=== PATIENT | female | born 1950 | race Caucasian/White ===

== ENCOUNTER → 2019-02-19 | Outpatient (CLI) | payer MEDICARE, BC ==
[2015-12-20 14:17] VITALS: BMI 30.6
[~2019-02-19] MED LIST: AMPI250C65 PO; AZIT-1 PO; GUAI120L3 PO; GUAI600T57 PO; HYDR-385 PO; PRED20TA6 PO
[2019-02-19 10:48] LABS: PLATELET COUNT, AUTOMATED 256 K/uL (150-450)
--- NOTE | 2019-02-19 11:09 | RADIOLOGY IMAGING REPORT ---
[place] [facility] [place] NAME: Ilana Barnes : 1950 MR: [id number] V: [id number] EXAM DATE: ORDERING PHYSICIAN: NUZHAT CRUZ TECHNOLOGIST: Location: [facility] Patient: Ilana Barnes : 1950 Visit/Account:[id number] Date of Sevice: 02/19/2019 EXAMINATION: Right hip radiographs 2 views HISTORY: Right leg pain. COMPARISON: None. FINDINGS: AP view of the pelvis and frog-leg lateral view of the right hip are obtained. Bones: No acute fracture or dislocation. Joint spaces: Mild sclerosis of the pubic symphysis. Mild joint space narrowing of the right hip. Hardware: None. Alignment: Normal. Soft tissues: Negative. IMPRESSION: 1. No acute fracture or dislocation of the right hip. 2. Mild joint space narrowing of the right hip could indicate osteoarthritis. 3. 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
--- NOTE | 2019-02-19 11:40 | RADIOLOGY IMAGING REPORT ---
FACILITY: [facility] PATIENT NAME: Ilana Barnes : 1950 MR: [id number] V: [id number] EXAM DATE: ORDERING PHYSICIAN: NUZHAT CRUZ TECHNOLOGIST: Location: [facility] Patient: Ilana Barnes : 1950 Visit/Account:[id number] Date of Sevice: 02/19/2019 EXAMINATION: Doppler ultrasound deep veins unilateral lower extremity HISTORY: Severe nocturnal right leg pain for 7 days. COMPARISON: None. FINDINGS: Grayscale compression, duplex and color Doppler interrogation of the right lower extremity deep veins from common femoral vein to proximal calf was performed. The greater saphenous vein in the ipsilater al proximal thigh was evaluated using similar technique. Right lower extremity: Common femoral vein: Negative. Femoral vein: Negative. Deep femoral vein: Negative. Popliteal vein: Negative. Visualized deep calf veins: Negative. Greater saphenous vein in the proximal thigh: Negative. Popliteal fossa: Negative. Waveforms: Normal respiratory phasicity. IMPRESSION: No DVT of the right lower extremity. Report Dictated By: Leticia Olivares MD at 02/19/2019 11:36 AM Report E-Signed By: Leticia Olivares MD at 02/19/2019 11:37 AM WSN:ANA
== END ==
LOC: LAB 10:24
PROVIDERS: ATTEND Emergency Medicine
DX: M79.604 Pain in right leg (principal)
CPT/HCPCS: 36415; 82040; 82247; 82310; 82374; 82435; 82565; 82947; 84075; 84132; 84155; 84295; 84450; 84460; 84520; 85025; 85651; 86140

== ENCOUNTER → 2019-03-13 | Outpatient (CLI) | payer MEDICARE, BC ==
[2015-12-20 14:17] VITALS: BMI 30.6
--- NOTE | 2019-03-14 16:00 | RADIOLOGY IMAGING REPORT ---
FACILITY: [facility] - [place] PATIENT NAME: CLAUDIA DUARTE : [id number] MR: [id number] V: [id number] EXAM DATE: [id number] ORDERING PHYSICIAN: NUZHAT CRUZ TECHNOLOGIST: Waleska Cordoba PROCEDURE: BILATERAL DIGITAL SCREENING MAMMOGRAM WITH CAD ASSISTED INTERPRETATION & 3D TOMOSYNTHESIS REASON FOR STUDY: Screening. FAMILY HISTORY OF BREAST CANCER: BREAST PROCEDURES/TREATMENTS: COMPARISON: Prior mammogram 06/09/2017. VIEWS OBTAINED: 2D & 3D full field CC & MLO. BREAST DENSITY: The breast tissue demonstrates scattered fibroglandular tissue elements. MAMMOGRAM FINDINGS: There is no suspicious mass, calcification, or architectural distortion. IMPRESSION: BIRADS 1: Negative. No mammographic evidence for malignancy. DIAGNOSTIC CATEGORY 1--NEGATIVE. RECOMMENDATIONS: ROUTINE MAMMOGRAM AND CLINICAL EVALUATION IN 1 YEAR. Dictated by: Lenin Santamaria M.D. on 03/14/2019 at 13:28 Transcribed by: DEBORA on 03/14/2019 at 14:54 Approved by: Lenni Santamaria M.D. on 03/14/2019 at 15:59 [facility]
== END ==
LOC: MAMO 00:38
PROVIDERS: ATTEND Emergency Medicine
DX: Z12.31 Encounter for screening mammogram for malignant neoplasm of breast (principal)
CPT/HCPCS: 77063; 77067

== ENCOUNTER → 2019-04-25 | Outpatient (CLI) | payer MEDICARE, BC ==
[2015-12-20 14:17] VITALS: BMI 30.6
== END ==
LOC: LAB 15:21
PROVIDERS: ATTEND Emergency Medicine
DX: M85.80 Other specified disorders of bone density and structure, unspecified site (principal); R73.09 Other abnormal glucose; Z91.89 Other specified personal risk factors, not elsewhere classified; R63.4 Abnormal weight loss
CPT/HCPCS: 36415; 82306; 82465; 83036; 83718; 84443; 84478

== ENCOUNTER 2019-05-07 10:30 | Outpatient (RCR) | payer MEDICARE, BC ==
[2015-12-20 14:17] VITALS: BMI 30.6
--- NOTE | 2019-02-22 07:59 | PT INITIAL EVALUATION ---
MEDICAL DIAGNOSIS: Right hip pain TREATMENT DIAGNOSIS: same, lumbar, hip, knee pain DATE OF ONSET: 02/14/19 SUBJECTIVE: Ilana Barnes presents to physical therapy with complaints of R leg pain specifically the groin, front/inside/outside of her thigh, and R knee pain that is extremely intense when she sits for 20-30 minutes or when she tries to sleep especially after a hard working/physical active day. She reports that it feels a little better if she moves her R leg around when she is required to sit that long but if she stops the pain returns immediately. She reports that massage usually helps when it is being performed but the pain comes right back after the massage has concluded. She reports that she has a history of low back pain especially when she was working in the home 1 year plus ago. She reports that since she has stopped working at the home her low back pain has significantly improved. She also reports about 6 months ago she had dull B hip pain and also a history of varicose veins on the back side of her knees and her thighs. For a while, she thought the hip and knee pain was coming from her varicose veins. However, she reports that this new pain started about one week ago and is intense and occurs when she sits for 20-30 minutes or when she tries to sleep especially after a hard working/physical active day. She states that she has been screened for blot clots, blood flow, and xray with nothing coming back positive. So they thought that they would try physical therapy to see if that would help. Pain location is B posterior hip, R groin, R anterior/medial/lateral thigh, and R knee. REHAB PROBLEM LIST: Increased Pain Decreased ROM Decreased Strength Decreased Endurance Decreased Function Decreased Gait PREVIOUS MEDICAL HISTORY: See EMR OCCUPATION: Retired OBJECTIVE: Posture: She demonstrated forward head, B rounded shoulders, increased thoracic kyphosis, and decreased lumbar lordosis ROM: Trunk AROM: flexion, extension, R sidegliding, L sidegliding: NIL with muscular end feels. Hip AROM: flexion, extension, IR, ER: NIL with muscular end feels. Knee AROM: flexion and extension; NIL with normal end feels. Strength: will test in future visit Palpation: She was not TTP in those areas: B posterior hip, R groin, R anterior/medial/lateral thigh, and R knee Special Tests: Repeated trunk: flexion and extension: stretch during the test with no change following the test. Repeated: hip flexion, IR, ER, extension: stretch during the test with no change following the test. Repeated knee flexion and extension: stretch during the test and no change following the test. Mobility: Independent Gait: She demonstrated normal gait mechanics: however, she demonstrated slight increase in base of support, slight decrease in velocity, normal B foot clearance, normal B foot step length, and decreased pelvic rotation. ASSESSMENT: Ilana will potentially benefit from skilled physical therapy. With her, she demonstrated no changes in pain with any mechanical movements that we performed; therefore, she is more than likely has no treatable mechanical pain; however, we typically will exam over the next 5 sessions to see what an effect that certain mechanical stresses will do to her night pain and if no changes occur, it will be determined that she has no mechanical pain and refer back to physician. Therefore, we will make this determination in 5 sessions. Short Term Goals 2 weeks: Pt will demonstrate directional preference with either her lumbar, hip, or knee and if she does demonstrate directional preference her prognosis is much better than if she does not demonstrate a directional preference. 4 week: If pt demonstrates a directional preference with lumbar, hip, or knee, she will demonstrate abolished pain with sleeping to improve function and QOL. 6 weeks: It pt demonstrates a directional preference with lumbar, hip, or knee, she will demonstrate abolished pain with all functional activities and with sleeping to improve function and QOL. Patient's Goals try to figure this pain out PLAN: Patient to be seen for Manual Therapy/STM/MET Strengthening/condition Ice/Heat Range of Motion Spinal Stabilization Work Hardening/Cond Stretching Iontophoresis Neuromuscular Re-ed Closed Chain Program Electrical Stim Posture/Body mechanics Gait Trg/Balance Trg Home Exercise Program Therapeutic Activities 2x/Week for 6 Weeks If you have any questions, comments, or concerns about this report or plan, please contact me at . Thank you, Jay Johnson, PT, DPT MTDD
--- NOTE | 2019-04-03 10:16 | PT PLAN OF CARE ---
Physician: Dayami Issa MD Patient is being seen: 2x/week Therapist: Jay Johnson, PT, DPT Medical Diagnosis: Right hip pain Treatment Diagnosis: same, lumbar, hip, knee pain Date of Onset: 02/14/19 Date of Initial Evaluation: 02/21/19 Date patient was last seen: 04/03/19 Number of treatments: 11 Number of cancellations/No shows: 0 INTERVENTIONS: Manual Therapy/STM/MET Strengthening/condition Ice/Heat Range of Motion Spinal Stabilization Work Hardening/Cond Stretching Iontophoresis Neuromuscular Re-ed Closed Chain Program Electrical Stim Posture/Body mechanics Gait Trg/Balance Trg Home Exercise Program Therapeutic Activities GOALS: 2 weeks: Pt will demonstrate directional preference with either her lumbar, hip, or knee and if she does demonstrate directional preference her prognosis is much better than if she does not demonstrate a directional preference. 4 week: If pt demonstrates a directional preference with lumbar, hip, or knee, she will demonstrate abolished pain with sleeping to improve function and QOL. 6 weeks: It pt demonstrates a directional preference with lumbar, hip, or knee, she will demonstrate abolished pain with all functional activities and with sleeping to improve function and QOL. PATIENT'S GOAL: try to figure this pain out Status of Patient's Goals: Progressing Patient Compliance: Good Prognosis: Fair Reasons for continuing therapy: This is a progress note for Ilana Barnes. She reports that she feels like the knee and thigh is worse following extension along with extension combined with lateral movement and better with no motion at all. She reports that the pain has improved a ton but continues to have intermittent thigh and knee pain with walking and rates it to be 1-3/10 and have typically been worse following specific extension motions. She denies any pain today and states that she has felt great all morning. She continues to change mechanically with repeated motions and extension reduced her trunk AROM in all directions and demonstrated decreased quality of motion. However, she demonstrated a return to full trunk AROM in all directions with flexion. Moving forward, I believe that she has a directional preference and that she has a potential for full abolishment of her pain moving forward, if we can figure out her directional preference. Overall, she demonstrated full trunk AROM with normalized end feels following flexion. Moving forward, we will see if she maintains the directional preference and if she does it should maintain and then we can return to prior level of function through core strengthening. I would anticipate that we will discharge her in 10 visits or less. Posture: She demonstrated forward head, B rounded shoulders, increased thoracic kyphosis, and decreased lumbar lordosis ROM: Trunk AROM: flexion, extension, R sidegliding, L sidegliding: NIL with muscular end feels. Hip AROM: flexion, extension, IR, ER: NIL with muscular end feels. Knee AROM: flexion and extension; NIL with normal end feels. Strength: will test in future visit Special Tests: Repeated trunk: flexion: improved trunk AROM in all directions, repeated extension: decreased trunk AROM in all directions, extension with R/L side bending: decreased trunk AROM in all directions. Mobility: Independent If you have any questions, please contact me at [phone]. Thank you, Jay Johnson, PT, DPT ERIKA
--- NOTE | 2019-05-07 11:18 | PT PLAN OF CARE ---
Physician: Dayami Issa MD Patient is being seen: 2x/week Therapist: Jay Johnson, PT, DPT Medical Diagnosis: Right hip pain Treatment Diagnosis: same, lumbar, hip, knee pain Date of Onset: 02/14/19 Date of Initial Evaluation: 02/21/19 Date patient was last seen: 05/07/19 Number of treatments: 20 Number of cancellations/No shows: 0 INTERVENTIONS: Manual Therapy/STM/MET Strengthening/condition Ice/Heat Range of Motion Spinal Stabilization Work Hardening/Cond Stretching Iontophoresis Neuromuscular Re-ed Closed Chain Program Electrical Stim Posture/Body mechanics Gait Trg/Balance Trg Home Exercise Program Therapeutic Activities GOALS: 2 weeks: Pt will demonstrate directional preference with either her lumbar, hip, or knee and if she does demonstrate directional preference her prognosis is much better than if she does not demonstrate a directional preference.MET 4 week: If pt demonstrates a directional preference with lumbar, hip, or knee, she will demonstrate abolished pain with sleeping to improve function and QOL. MET 6 weeks: It pt demonstrates a directional preference with lumbar, hip, or knee, she will demonstrate abolished pain with all functional activities and with sleeping to improve function and QOL.MET PATIENT'S GOAL: try to figure this pain out Status of Patient's Goals: MET Patient Compliance: Good Prognosis: Fair Reasons for continuing therapy: This is a discharge note for Ilana Barnes. She reports that she is doing well. She reports that he occasionally has a twing of discomfort on her R quad and central low back region. She states that it does not last long and does not interfere with anything that she does in her life. She reports that she feels confident with her home exercise program and continues to report compliance. She demonstrated significant improvements within PT that included the following: decreased pain, increased trunk AROM, and increased core and B LE strength. All of these improvements have allowed her to return to ambulation and all of her other functional activities without being restricted and without any pain. She has met all of her goals. She is independent with her home exercise program. As a result, she will be discharged from PT to [facility]. Posture: She demonstrated forward head, B rounded shoulders, increased thoracic kyphosis, and decreased lumbar lordosis ROM: Trunk AROM: flexion, extension, R sidegliding, L sidegliding: NIL with muscular end feels. Hip AROM: flexion, extension, IR, ER: NIL with muscular end feels. Knee AROM: flexion and extension; NIL with normal end feels. Strength: hip abduction, extension, flexion, knee flexion and extension, ankle PF and DF: 4+/5 to 5/5 Mobility: Independent If you have any questions, please contact me at [phone]. Thank you, Jay Johnson, PT, DPT RIMAD
== END 2019-05-07 18:00 | disposition home or self-care (01) ==
LOC: PT 10:30
PROVIDERS: ATTEND Emergency Medicine
DX: M25.551 Pain in right hip (principal); M54.5 Low back pain
CPT/HCPCS: 97163

== ENCOUNTER 2019-05-15 00:20 | Day surgery (SDC) | payer MEDICARE, BC ==
[2015-12-20 14:17] VITALS: Ht 154.9 cm; Wt 59.9 kg
[~2019-05-15] VITALS: Ht 154.9 cm; Wt 59.9 kg
[2019-05-15] VITALS (7 sets, daily range): BP systolic 98–124; BP diastolic 55–72
[2019-05-15] MEDS ORDERED: NORMOSOL R SOLN(*) 1000 ML BAG 1,000 ML IV PRN (06:30)
[2019-05-15] MEDS ORDERED: LIDOCAINE/SOD BICARB 8.4% SYR ID ONE (06:30)
[2019-05-15] MEDS ORDERED: PROPOFOL EMUL(*) 10MG/ML 20 ML 20 ML ONE ×2 (07:00→07:45)
--- NOTE | 2019-05-15 07:59 | Short(Outpt) Discharge Summary ---
Discharge Summary Reason for Hosp/Final Diag: (1) Fecal occult blood test positive Hospital Course & Plan: pt presented for colonoscopy. she tolerated the procedure well and will be discharged home when criteria met. Departure Discharge to: Home Discharge Instructions Home Meds No Active Prescriptions or Reported Meds Diet: Regular Activity: As Tolerated Special Instructions: repeat colonoscopy in 10 yrs. DERIC FERNANDEZ May 15, 2019 07:59
--- NOTE | 2019-05-15 08:02 | NUR ---
0752 SBAR REPORT WAS RECEIVED FROM DR. MÁRQUEZ AND ADELA SOLANO. PATIENT IS IN A L. LATERAL POSITION. LUNGS ARE CLEAR. SHE IS ON 2 LITERS HIGH FLOW NASAL CANNULA. BOWEL SOUNDS ARE ACTIVE. UNABLE TO ASSESS PAIN OR NAUSEA. PATIENT IS BRADYCARDIAC. PATIENTS IS IN ROOM. SEE ADMISSION ASSESSMENT. [id number] PATIENT CONTINUES TO SLEEP
--- NOTE | 2019-05-15 08:05 | NUR ---
0805 AR REPORT WAS GIVEN TO Marielos REYNOLDS RN.
--- NOTE | 2019-05-15 08:31 | NUR ---
patient alert and oriented at this time, oxygen removed, pt maintaining oxygen saturation above 90% on room air, pt denies pain, pt provided with water to drink, pt denies wanting any food at this time.
--- NOTE | 2019-05-15 09:05 | NUR ---
pt education completed, spouse present with patient during discharge instructions, agreed to stay with patient for 24 hours, provided transportation home. pt ambulated to their personal vehicle without any adverse events.
== END 2019-05-15 09:05 | disposition home or self-care (01) ==
LOC: OR 00:20
PROVIDERS: ATTEND Surgery
DX: K57.30 Diverticulosis of large intestine without perforation or abscess without bleeding (principal)
CPT/HCPCS: 00812; G0121; J2704